=== PATIENT | male | born 1955 | race Caucasian/White ===

== ENCOUNTER → 2023-09-27 06:29 | Day surgery (SDC) | payer MEDICARE, OTHER, SELFPAY ==
[2023-09-27 11:11] LABS: Glucose - Point of Care 80 mg/dl (70-99)
== END ==
LOC: GI 06:29
PROVIDERS: ATTENDING PHYSICIAN Internal Medicine Gastroenterology; FAMILY PHYSICIAN Family Medicine
DX: Z12.11 Encounter for screening for malignant neoplasm of colon (principal); K64.8 Other hemorrhoids; K57.30 Diverticulosis of large intestine without perforation or abscess without bleeding; D12.4 Benign neoplasm of descending colon; D12.5 Benign neoplasm of sigmoid colon; K63.5 Polyp of colon; Z86.010 Personal history of colon polyps
CPT/HCPCS: 45385; 88305; 82962

== ENCOUNTER 2024-10-18 06:19 | Day surgery (SDC) | payer MEDICARE, OTHER, SELFPAY ==
[2024-10-18 07:37] LABS: Glucose - Point of Care 89 mg/dl (70-99)
== END 2024-10-18 10:22 | disposition home or self-care (01) ==
LOC: GI 06:19
PROVIDERS: ATTENDING PHYSICIAN Internal Medicine Gastroenterology
DX: Z12.11 Encounter for screening for malignant neoplasm of colon (principal); K57.30 Diverticulosis of large intestine without perforation or abscess without bleeding; K63.5 Polyp of colon; Z86.0101 Personal history of adenomatous and serrated colon polyps
CPT/HCPCS: 45380; 88305; 82962